=== PATIENT | female | born 1980 | race Caucasian/White ===

== ENCOUNTER 2016-05-04 11:07 | Day surgery (SDC) | payer BC, SELFPAY ==
--- NOTE | ~2016-05-04 | EGD ---
EGD REPORT [facility] [address] [address] NAME: RACHEL PAEZ : [birth year] STATUS : REG [facility]#: [id number] AGE: 35 ADM/REG DATE : 05/04/16 MR#: [id number] REPORT SERV DATE: 05/04/16 DICTATED BY: FANY CHAPPELL DATE: 05/04/16 REPORT STATUS : Draft TRANSCRIBED BY: [facility] DATE: 05/04/16 Endoscopy Center Patient Name: Rachel Paez Date of : 1980 Attending MD: TASHA CHAPPELL MD Procedure Date No Time: 05/04/2016 Procedure: Colonoscopy Indications: Hematochezia Referring MD: Nena Vick Medicines: See the Anesthesia note for documentation of the administered medications Complications: No immediate complications. Estimated blood loss: None. Procedure: Pre-Anesthesia Assessment: - ASA Grade Assessment: II - A patient with mild systemic disease. - Prior to the procedure, a History and Physical was performed, and patient medications and allergies were reviewed. The patient's tolerance of previous anesthesia was also reviewed. The risks and benefits of the procedure and the sedation options and risks were discussed with the patient. All questions were answered, and informed consent was obtained. Prior Anticoagulants: The patient has taken no previous anticoagulant or antiplatelet agents. After reviewing the risks and benefits, the patient was deemed in satisfactory condition to undergo the procedure. After I obtained informed consent, the scope was passed under direct vision. Throughout the procedure, the patient's blood pressure, pulse, and oxygen saturations were monitored continuously. The PCF [id number] was introduced through the anus and advanced to the terminal ileum. The ileocecal valve, appendiceal orifice, terminal ileum and rectum were photographed. The entire colon was examined. The colonoscopy was performed without difficulty. The patient tolerated the procedure well. The quality of the bowel preparation was adequate. Findings: The perianal and digital rectal examinations were normal. The terminal ileum appeared normal. Non-bleeding internal hemorrhoids were found during retroflexion and were Grade I (internal hemorrhoids that do not prolapse). No other significant abnormalities were identified in a careful examination of the remainder of the colon. EGD REPORT [address] [address] NAME: RACHEL PAEZ : [birth year] STATUS : REG [facility]#: [id number] AGE: 35 ADM/REG DATE : 05/04/16 MR#: [id number] REPORT SERV DATE: 05/04/16 DICTATED BY: FANY CHAPPELL DATE: 05/04/16 REPORT STATUS : Draft [facility]: [facility] DATE: 05/04/16 Impression: - The examined portion of the ileum was normal. - Non-bleeding internal hemorrhoids. Recommendation: - Patient has a contact number available for emergencies. The signs and symptoms of potential delayed complications were discussed with the patient. Return to normal activities tomorrow. Written discharge instructions were provided to the patient. - Regular diet. - Discharge patient to home. - Continue present medications. - Repeat colonoscopy at age 51 for surveillance. Procedure Code(s): --- Professional --- 13652, Colonoscopy, flexible, proximal to splenic flexure; diagnostic, with or without collection of specimen(s) by brushing or washing, with or without colon decompression (separate procedure) Diagnosis Code(s): --- Professional --- K64.0, First degree hemorrhoids K92.1, Melena CPT copyright 2013 [employer]. All rights reserved. The codes documented in this report are preliminary and upon resident buyer review may be revised to meet current compliance requirements. TASHA CHAPPELL MD 05/04/2016 2:01 PM This report has been signed electronically. Number of Addenda: 0 Note Initiated On: 05/04/2016 1:35 PM Scope Withdrawal Time 0 hours 7 minutes 6 seconds [address] [place] [address]
--- NOTE | ~2016-05-04 | EGD ---
EGD REPORT [facility] [address] [address] NAME: RACHEL PAEZ : [birth year] STATUS : REG [facility]#: [id number] AGE: 35 ADM/REG DATE : 05/04/16 MR#: [id number] REPORT SERV DATE: 05/04/16 DICTATED BY: FANY CHAPPELL DATE: 05/04/16 REPORT STATUS : Draft TRANSCRIBED BY: [facility] DATE: 05/04/16 Endoscopy Center Patient Name: Rachel Paez Date of : 1980 Attending MD: TASHA CHAPPELL MD Procedure Date No Time: 05/04/2016 Procedure: Upper GI endoscopy Indications: Epigastric abdominal pain, Gastro-esophageal reflux disease Referring MD: Nena Vick Medicines: See the Anesthesia note for documentation of the administered medications Complications: No immediate complications. Estimated blood loss: Minimal. Procedure: Pre-Anesthesia Assessment: - ASA Grade Assessment: II - A patient with mild systemic disease. - Prior to the procedure, a History and Physical was performed, and patient medications and allergies were reviewed. The patient's tolerance of previous anesthesia was also reviewed. The risks and benefits of the procedure and the sedation options and risks were discussed with the patient. All questions were answered, and informed consent was obtained. Prior Anticoagulants: The patient has taken no previous anticoagulant or antiplatelet agents. After reviewing the risks and benefits, the patient was deemed in satisfactory condition to undergo the procedure. After obtaining informed consent, the endoscope was passed under direct vision. Throughout the procedure, the patient's blood pressure, pulse, and oxygen saturations were monitored continuously. The GIF H190 [id number] was introduced through the mouth, and advanced to the third part of duodenum. The upper GI endoscopy was accomplished without difficulty. The patient tolerated the procedure well. Findings: The examined duodenum was normal. Localized mild inflammation characterized by congestion (edema), erosions and erythema was found in the gastric antrum. Biopsies were taken with a cold forceps for histology. No other significant abnormalities were identified in a careful examination of the stomach. The cardia and gastric fundus were normal on retroflexion. EGD REPORT [address] [address] NAME: RACHEL PAEZ : [birth year] STATUS : REG [facility] PAT#: [id number] AGE: 35 ADM/REG DATE : 05/04/16 MR#: [id number] REPORT SERV DATE: 05/04/16 DICTATED BY: FANY CHAPPELL DATE: 05/04/16 REPORT STATUS : Draft TRANSCRIBED BY: [employer] DATE: 05/04/16 The Z-line was irregular and was found at the gastroesophageal junction. Biopsies were taken with a cold forceps for histology. No other significant abnormalities were identified in a careful examination of the esophagus. Impression: - Normal examined duodenum. - Gastritis. Biopsied. - Z-line irregular, at the gastroesophageal junction. Biopsied. Recommendation: - Patient has a contact number available for emergencies. The signs and symptoms of potential delayed complications were discussed with the patient. Return to normal activities tomorrow. Written discharge instructions were provided to the patient. - Regular diet. - Discharge patient to home. - Continue present medications. - Await pathology results. Procedure Code(s): --- Professional --- 93310, Esophagogastroduodenoscopy, flexible, transoral; with biopsy, single or multiple Diagnosis Code(s): --- Professional --- K29.70, Gastritis, unspecified, without bleeding K22.8, Other specified diseases of esophagus R10.13, Epigastric pain K21.9, Gastro-esophageal reflux disease without esophagitis CPT copyright 2013 [employer]. All rights reserved. The codes documented in this report are preliminary and upon leg breaker review may be revised to meet current compliance requirements. TASHA CHAPPELL MD 05/04/2016 1:49 PM This report has been signed electronically. Number of Addenda: 0 Note Initiated On: 05/04/2016 1:03 PM Scope Withdrawal Time 0 hours 0 minutes 0 seconds [id number] [id number]
[~2016-05-04 11:07] MED LIST: ASAB PO; BUSPAR10 PO; LIPITOR20 PO; LOP25 PO; MELATONIN5 M1 PO; NEXIUM20 M1 PO; WELL100 PO
== END 2016-05-04 23:59 | disposition home or self-care (01) ==
LOC: DMU 11:07
PROVIDERS: Internal Medicine Gastroenterology
PROC: 0DB68ZX Excision of Stomach, Via Natural or Artificial Opening Endoscopic, Diagnostic (ICD-10-PCS; principal; 2016-05-04 12:30)
PROC: 0DJD8ZZ Inspection of Lower Intestinal Tract, Via Natural or Artificial Opening Endoscopic (ICD-10-PCS; 2016-05-04 12:30)
DX: K29.70 Gastritis, unspecified, without bleeding (principal); K21.9 Gastro-esophageal reflux disease without esophagitis; K64.0 First degree hemorrhoids; K22.8 Other specified diseases of esophagus; I25.2 Old myocardial infarction; I44.7 Left bundle-branch block, unspecified; I10 Essential (primary) hypertension; E78.00 Pure hypercholesterolemia, unspecified; F41.9 Anxiety disorder, unspecified; F32.9 Major depressive disorder, single episode, unspecified; M19.90 Unspecified osteoarthritis, unspecified site; Z91.018 Allergy to other foods; Z90.49 Acquired absence of other specified parts of digestive tract
CPT/HCPCS: 84703; 88305